=== PATIENT | male | born 1940 | race American Indian/Alaskan Native ===

== ENCOUNTER 2017-02-25 08:46 | Day surgery (SDC) | payer MEDICARE, BC ==
[~2017-02-25 08:46] MED LIST: Cataract Ophth Solution EYELF SCH; Lidocaine 4% 5 ML Amp EYELF SCH; Moxifloxacin 0.5% Ophth Soln 3 ML Bottle EYELF SCH; Sodium Chloride 0.9% 10 ML Syringe FLUSH PRN
[2017-02-25] MEDS ORDERED: Lidocaine 4% 5 ML Amp ONE (10:55)
[2017-02-25] MEDS ORDERED: Moxifloxacin 0.5% Ophth Soln 3 ML Bottle EYELF ONE (10:55)
[2017-02-25] MEDS ORDERED: Lidocaine 1% 30 ML SDV ONE (10:55)
[2017-02-25] MEDS ORDERED: prednisoLONE Acetate 1% Ophth Susp 5 ML Bottle EYELF ONE (10:56)
[2017-02-25] MEDS ORDERED: Povidone-Iodine 5% Sterile Ophth Soln 30 ML Bottle EYELF ONE (10:56)
[2017-02-25] MEDS ORDERED: EPINEPHrine 1 MG/ML SDV ONE (10:56)
[2017-02-25] MEDS ORDERED: Balanced Salt Solution Ophth Irrig 500 ML Bottle IOCULAR ONE (10:56)
[2017-02-25] MEDS ORDERED: Chondroitin/Hyaluronate Sodium Ophth Inj 0.5/0.55 ML Kit IOCULAR ONE ×2 (10:57)
--- NOTE | 2017-02-25 11:15 | PCM.OPNOTE ---
- General Post-Op/Procedure Note Date of Surgery/Procedure: 02/25/17 Operative Procedure(s): Cataract extraction with lens implant left eye Findings: As above Pre Op Diagnosis: Cataract left eye Post-Op Diagnosis: Same Anesthesia Technique: Local Primary Surgeon: Dyllan Moyer Pathology: None EBL in mLs: 0 Complications: None Condition: Good Free Text/Narrative:: PROCEDURE: After the risks and benefits of the procedure were explained informed consent was obtained from the patient and the patient was taken to the operating room. The patient was given topical Lidocaine 4% drops in the left eye. The patient was then prepped and draped in the sterile [facility] fashion. A wire lid speculum was placed in the left eye. A clear cornea temporal approach was used. A [address] blade was used to make a paracentesis site around 5:00. Preservative-free Lidocaine 1% was injected intracamerally. Viscoelastic was placed in the anterior chamber. A 2.65 mm keratome blade was used to make a clear corneal incision around 3:00. A cystotome needle and Utrata forceps were used to perform continuous curvilinear capsulorhexis. Balanced Salt Solution was used to perform hydrodissection and hydrodelineation. The lens nucleus was removed using the divide and conquer phacoemulsification technique. Cumulative dissipated energy was 5.93. Remaining cortex was removed using irrigation- aspiration. Viscoelastic was placed in the capsular bag. PCBOO 21.5 diopter lens was then placed in the capsular bag. Remaining viscoelastic was removed using irrigation-aspiration. The lens was well centered in the capsular bag. The paracentesis and corneal incision were found to be water-tight. The patient was given topical Prednisolone and Vigamox drops. The speculum was removed and a shield was placed over the left eye. The patient was taken to recovery in stable condition. I certify that I was present for and performed the entire operative procedure. Dyllan Moyer M.D.
== END 2017-02-25 11:55 | disposition home or self-care (01) ==
LOC: DL.SDS 08:46
PROVIDERS: ATTEND Ophthalmology
DX: H25.812 Combined forms of age-related cataract, left eye (principal); I25.10 Atherosclerotic heart disease of native coronary artery without angina pectoris; E11.9 Type 2 diabetes mellitus without complications; J45.909 Unspecified asthma, uncomplicated; E78.5 Hyperlipidemia, unspecified; K21.9 Gastro-esophageal reflux disease without esophagitis; I25.2 Old myocardial infarction; G47.33 Obstructive sleep apnea (adult) (pediatric); Z90.49 Acquired absence of other specified parts of digestive tract; Z95.5 Presence of coronary angioplasty implant and graft; Z87.891 Personal history of nicotine dependence
CPT/HCPCS: 66984; A9270; J0171; J7050; V2632

== ENCOUNTER 2017-04-01 07:51 | Day surgery (SDC) | payer MEDICARE, BC ==
[2017-04-01] MEDS ORDERED: Sodium Chloride 0.9% 10 ML Syringe IV ONE (07:52)
[2017-04-01] MEDS ORDERED: Midazolam 1 MG/ML 2 ML SDV IV ONE (07:52)
[2017-04-01] MEDS ORDERED: Sodium Chloride 0.9% 10 ML Syringe FLUSH PRN (09:00)
[2017-04-01] MEDS ORDERED: Lidocaine 4% 5 ML Amp EYERT ONE ×2 (09:00→10:20)
[2017-04-01] MEDS ORDERED: Cataract Ophth Solution EYERT ONE (09:00)
[2017-04-01] MEDS ORDERED: Moxifloxacin 0.5% Ophth Soln 3 ML Bottle EYERT ONE ×2 (09:00→10:19)
[2017-04-01] MEDS ORDERED: prednisoLONE Acetate 1% Ophth Susp 5 ML Bottle EYERT ONE (10:19)
[2017-04-01] MEDS ORDERED: Lidocaine 1% 30 ML SDV ONE (10:19)
[2017-04-01] MEDS ORDERED: EPINEPHrine 1 MG/ML SDV ONE (10:20)
[2017-04-01] MEDS ORDERED: Povidone-Iodine 5% Sterile Ophth Soln 30 ML Bottle EYERT ONE (10:20)
[2017-04-01] MEDS ORDERED: Balanced Salt Solution Ophth Irrig 500 ML Bottle IOCULAR ONE (10:20)
[2017-04-01] MEDS ORDERED: Chondroitin/Hyaluronate Sodium Ophth Inj 0.5/0.55 ML Kit IOCULAR ONE ×2 (10:21)
--- NOTE | 2017-04-01 12:46 | PCM.OPNOTE ---
- General Post-Op/Procedure Note Date of Surgery/Procedure: 04/01/17 Operative Procedure(s): Cataract extraction with intraocular lens implant, right eye Findings: As above Pre Op Diagnosis: Combined forms of age-related cataract, right eye Post-Op Diagnosis: Same Anesthesia Technique: MAC Primary Surgeon: Dyllan Moyer Anesthesia Provider: Marco Sosa Pathology: None EBL in mLs: 0 Complications: None Condition: Good Free Text/Narrative:: Intake & Output 03/31/17 04/01/17 04/01/17 22:59 06:59 14:59 Intake Total 400 Balance 400 PROCEDURE: After the risks and benefits of the procedure were explained informed consent was obtained from the patient and the patient was taken to the operating room. The patient was given topical Lidocaine 4% drops in the right eye. The patient was then prepped and draped in the sterile [facility] fashion. A wire lid speculum was placed in the right eye. A clear cornea temporal approach was used. A [address] blade was used to make a paracentesis site around 11:00. Preservative-free Lidocaine 1% was injected intracamerally. Viscoelastic was placed in the anterior chamber. A 2.65 mm keratome blade was used to make a clear corneal incision around 9:00. A cystotome needle and Utrata forceps were used to perform continuous curvilinear capsulorhexis. Balanced Salt Solution was used to perform hydrodissection and hydrodelineation. The lens nucleus was removed using the divide and conquer phacoemulsification technique. Cumulative dissipated energy was 4.36. Remaining cortex was removed using irrigation- aspiration. Viscoelastic was placed in the capsular bag. PCBOO 21.0 diopter lens was then placed in the capsular bag. Remaining viscoelastic was removed using irrigation-aspiration. The lens was well centered in the capsular bag. The paracentesis and corneal incision were found to be water-tight. The patient was given topical Prednisolone and Vigamox drops. The speculum was removed and a shield was placed over the right eye. The patient was taken to recovery in stable condition. I certify that I was present for and performed the entire operative procedure. Dyllan Moyer M.D.
== END 2017-04-01 12:14 | disposition home or self-care (01) ==
LOC: DL.SDS 07:51
PROVIDERS: ATTEND Ophthalmology
DX: H25.811 Combined forms of age-related cataract, right eye (principal); I25.10 Atherosclerotic heart disease of native coronary artery without angina pectoris; J45.909 Unspecified asthma, uncomplicated; E11.9 Type 2 diabetes mellitus without complications; E78.5 Hyperlipidemia, unspecified; K21.9 Gastro-esophageal reflux disease without esophagitis; I25.2 Old myocardial infarction; G47.33 Obstructive sleep apnea (adult) (pediatric); Z99.89 Dependence on other enabling machines and devices; Z87.891 Personal history of nicotine dependence
CPT/HCPCS: 66984; A9270; J0171; J2250; J7050; V2632; 00142